=== PATIENT | female | born 2005 | race Caucasian/White ===

== ENCOUNTER 2023-08-12 13:45 | Emergency (ER) | payer BC, SELFPAY ==
[2023-08-12 14:00] VITALS: BP 114/74; PULSE 100; RESP 18; TEMP 37.1; O2SAT 98
--- NOTE | 2023-08-12 14:13 | ED.NAVMDI ---
HPI - Nausea/Vomiting/Diarrhea General Chief complaint: Nausea/Vomiting/Diarrhea Stated complaint: Vomiting/Diarrhea/Abdominal Pain History of Present Illness HPI Narrative: PATIENT PRESENTS WITH NAUSEA VOMITING WHICH HAS SINCE RESOLVED AND NOW SHE HAS HAD A FEW LIQUID STOOLS THE LAST 24 HOURS. NO ABDOMINAL PAIN NO FEVER. PATIENT STATES SHE HAS MISSED WORK AND IS HERE ASKING FOR A WORK NOTE. PATIENT REPORTS SHE TOLERATES LIQUIDS WELL NO FEVER NORMALLY HEALTHY INDIVIDUAL. Related Data Home Medications Medication Instructions Recorded Confirmed citalopram 20 mg tablet 30 mg PO DAILY 08/12/23 08/12/23 norethindrone acetate 1 mg-ethinyl See Rx Instructions .Route .COMPLEX 08/12/23 08/12/23 estradiol 20 mcg tablet (Junel) sumatriptan succinate 50 mg tablet See Rx Instructions .Route .COMPLEX 08/12/23 08/12/23 Allergies Allergy/AdvReac Type Severity Reaction Status Date / Time No Known Allergies Allergy Verified 08/12/23 14:04 Review of Systems Review of Systems: CONSTITUTIONAL: DENIES FEVER, CHILLS, OR SWEATS. EYES: DENIES VISUAL CHANGES, REDNESS, OR DISCHARGE. ENT: DENIES RHINORRHEA, CONGESTION, SORE THROAT, OR OTALGIA. CARDIOVASCULAR: DENIES CHEST PAIN, PALPITATIONS, OR EDEMA. RESPIRATORY: DENIES COUGH OR DYSPNEA. GASTROINTESTINAL: DENIES ABDOMINAL PAIN, NAUSEA, VOMITING, OR DIARRHEA. GENITOURINARY: DENIES DYSURIA OR HEMATURIA. SKIN: DENIES RASH OR ITCHING. MUSCULOSKELETAL: DENIES BACK PAIN, JOINT PAIN, OR MYALGIA. NEUROLOGIC: DENIES HEADACHE, NUMBNESS, OR WEAKNESS. PSYCHIATRIC: DENIES ANXIETY OR DEPRESSION. PMFSH Comments AT TIME OF SIGNATURE, AGREE WITH NURSING PAST MEDICAL, SURGICAL, SOCIAL AND FAMILY HISTORY. THERE IS NO RELEVANT FAMILY HISTORY PERTINENT TO THE PRESENTING COMPLAINT Exam Narrative: GENERAL: WELL-APPEARING, WELL-NOURISHED, AND IN NO ACUTE DISTRESS. HEAD: NORMOCEPHALIC, ATRAUMATIC. EYES: PERRLA AND EOMI. ENT: NARES CLEAR, NO RHINORRHEA OR EPISTAXIS. MUCOUS MEMBRANES MOIST. NECK: SUPPLE. CHEST: CLEAR TO AUSCULTATION. NO RESPIRATORY DISTRESS. HEART: REGULAR RATE AND RHYTHM. NO MURMUR HEARD. NORMAL PERIPHERAL PULSES. ABDOMEN: SOFT, NONTENDER, NONDISTENDED, NORMAL ACTIVE BOWEL SOUNDS. EXTREMITIES: NORMAL RANGE OF MOTION. NO EDEMA. SKIN: WARM, DRY, NO RASH. NEURO: NO FOCAL DEFICITS. ALERT AND ORIENTED X3. JONAH COMA SCALE EYE OPENING: SPONTANEOUS 4 JONAH COMA SCALE MOTOR: OBEYS COMMANDS 6 JONAH COMA SCALE VERBAL: ORIENTED 5 JONAH COMA SCALE TOTAL 15 Course Course Level of Care: Express Care Visit Vital Signs Vital signs: Vital Signs Temperature 37.1 C 08/12/23 14:00 Pulse Rate 100 08/12/23 14:00 Respiratory Rate 18 08/12/23 14:00 Blood Pressure 114/74 08/12/23 14:00 Pulse Oximetry 98 08/12/23 14:00 Temperature 37.1 C 08/12/23 14:00 Pulse Rate 100 08/12/23 14:00 Respiratory Rate 18 08/12/23 14:00 Blood Pressure 114/74 08/12/23 14:00 Pulse Oximetry 98 08/12/23 14:00 Discharge Plan Discharge Clinical Impression: Nausea & vomiting, Diarrhea Patient Disposition: Home, Self-Care Condition: Stable Additional Instructions: CLEAR LIQUIDS FOR THE NEXT 8-10 HOURS, THEN ADVANCE TO A BLAND DIET TOLERATED A BLAND DIET CAN CONSIST OF--BRAT DIET WHICH IS BANANAS, RICE, APPLESAUCE, AND TOAST AVOID FRIED, GREASY, FATTY, FRIED FOODS AVOID CAFFEINE, NICOTINE, AND ALCOHOL RETURN TO YOUR REGULAR DIET IN THE NEXT 3-4 DAYS MEDICATION DIRECTED FOR NAUSEA AND VOMITING -IF YOU HAVE ANY WORSENING OF SYMPTOMS OR ANY OTHER CONCERNS PLEASE GO TO THE ED IMMEDIATELY. Prescriptions: No Action sumatriptan succinate 50 mg tablet See Rx Instructions .ROUTE .COMPLEX Rx Instructions: as prescribed citalopram 20 mg tablet 30 mg PO DAILY norethindrone ac-eth estradiol [11/17 (21)] 1-20 mg-mcg tablet See Rx Instructions .ROUTE .COMPLEX Rx Instructions: as prescribed Follow-up/R
== END 2023-08-12 14:20 | disposition home or self-care (01) ==
PROVIDERS: Emergency Provider Nurse Practitioner Family
DX: R11.2 Nausea with vomiting, unspecified (principal); R19.7 Diarrhea, unspecified; F41.9 Anxiety disorder, unspecified
CPT/HCPCS: 99211; G0463

== ENCOUNTER 2023-09-12 10:09 | Emergency (ER) | payer BC, SELFPAY ==
[2023-09-12 10:14] VITALS: BP 125/72; PULSE 100; RESP 16; TEMP 36.4; O2SAT 98
--- NOTE | 2023-09-12 10:40 | ED.NAVMDI ---
HPI - Nausea/Vomiting/Diarrhea General Chief complaint: Nausea/Vomiting/Diarrhea Stated complaint: Vomiting/Diarrah Time Seen by Provider: 09/12/23 10:40 Source: patient, RN notes reviewed and old records reviewed Mode of arrival: ambulatory Limitations: no limitations History of Present Illness HPI Narrative: 18 year old female with complaints of feeling bad when she got up this morning but she went into work and around 8 o'clock she started having nausea and vomiting and also has had 2 episodes of diarrhea. Patient does admit to previous similar episode in July. Patient reports some achiness across her abdomen with no focal area of tenderness noted on palpation. Patient reports that she has not had a fever, chills or sweats or any body aches. She states that she did take some Imodium and some liquid IV solution. Patient states that they did eat [employer] for supper last night but significant other is not ill. Patient does report that brother has IBS. MD elicited complaint: nausea, vomiting and other (aching and cramping across abdomen) Pertinent past history: other (similar episode in July) Onset (ago): hour(s) (this morning) Description of vomiting: food contents Description of diarrhea: watery Associated nausea: Yes Associated abdominal pain: Yes Pain scale (0-10): 6 Treatment prior to arrival: immodium and other (liquid IV) Related Data Home Medications Medication Instructions Recorded Confirmed citalopram 20 mg tablet 30 mg PO DAILY 08/12/23 09/12/23 norethindrone acetate 1 mg-ethinyl 1 tablet PO DAILY 08/12/23 09/12/23 estradiol 20 mcg tablet (June) sumatriptan succinate 50 mg tablet 50 mg PO DAILY PRN Migraine 08/12/23 09/12/23 Headache Allergies Allergy/AdvReac Type Severity Reaction Status Date / Time No Known Allergies Allergy Verified 09/12/23 10:34 Review of Systems Review of Systems: CONSTITUTIONAL: Denies fever, chills, or sweats. EYES: Denies visual changes, redness, or discharge. ENT: Denies rhinorrhea, congestion, sore throat, or otalgia. CARDIOVASCULAR: Denies chest pain, palpitations, or edema. RESPIRATORY: Denies cough or dyspnea. GASTROINTESTINAL: across lower abdominal cramping and achiness, positive for nausea, vomiting, or diarrhea. GENITOURINARY: Denies dysuria or hematuria. SKIN: Denies rash or itching. MUSCULOSKELETAL: Denies back pain, joint pain, or myalgia. NEUROLOGIC: Denies headache, numbness, or weakness. PSYCHIATRIC: Reports history of anxiety or depression. All systems reviewed & are unremarkable except as noted in HPI and below PMFSH Past Medical History Medical History (Updated 09/13/23 @ 08:45 by Ness Shearer NP) Anxiety Hx of migraines Family History Family History (Updated 09/12/23 @ 10:58 by Ness Shearer NP) Sibling IBS (irritable bowel syndrome) Social History Social History (Updated 09/12/23 @ 10:59 by Ness Shearer NP) Smoking status: Current every day smoker Tobacco type: e-cigarettes/vaping Substance use type: does not use Gender identity (if verbalized by the patient): Female Comments At time of signature, agree with nursing past medical, surgical, social and family history. There is no relevant family history pertinent to the presenting complaint Exam Narrative: GENERAL: Well-appearing, well-nourished, and in no acute distress. HEAD: Normocephalic, atraumatic. EYES: PERRLA and EOMI. ENT: Nares clear, no rhinorrhea or epistaxis. Mucous membranes moist.RM's normal throat pink with no swelling NECK: Supple. no lymphadenopathy CHEST: Clear to auscultation. No respiratory distress. HEART: Regular rate and rhythm. No murmur heard. Normal peripheral pulses. ABDOMEN: Soft, nontender on palpation, no focal pain, nondistended, hypo- active bowel sounds. EXTREMITIES: Normal range of motion. No edema. SKIN: Warm, dry, no rash. NEURO: No focal deficits. Alert and oriented x3. Course Course Emergency Course: [place]
== END 2023-09-12 11:08 | disposition home or self-care (01) ==
PROVIDERS: Emergency Provider Registered Nurse
DX: K52.9 Noninfective gastroenteritis and colitis, unspecified (principal); F17.290 Nicotine dependence, other tobacco product, uncomplicated; Z79.899 Other long term (current) drug therapy
CPT/HCPCS: 87804; 99213; G0463

== ENCOUNTER 2023-09-13 12:35 | Emergency (ER) | payer BC, SELFPAY ==
[2023-09-13] VITALS (7 sets, daily range): BP systolic 122–128; BP diastolic 71–90; PULSE 96–120; RESP 15–23; TEMP 36.4–37; O2SAT 99–100
--- NOTE | ~2023-09-13 | CT_ITS ---
. EXAMINATION: CT abdomen pelvis w con DATE: 09/13/2023 15:37 INDICATION: Abdominal pain, nausea, vomiting, diarrhea for one month TECHNIQUE: Computed tomography (CT) of the abdomen and pelvis was performed with 100 CC Omnipaque 350 intravenous contrast. Automated exposure control and iterative reconstruction technique were employe d. Exam dose: 457.01 mGy-cm total exam DLP. COMPARISON: None. FINDINGS: Calcified lingular pulmonary granuloma. Minimal dependent bilateral lower lobe atelectasis. Normal heart size. No pericardial or pleural effusion. There is approximately 3.2 cm rounded enhancing lesion of the anterosuperior right hepatic lobe, most likely focal nodular hyperplasia in this 18-year-old female. There is otherwise diffuse hepatic steatosis with minimal pericholecystic sparing. No other hepatic s pace-occupying mass lesion is evident. The gallbladder appears unremarkable, without thickening of the wall or pericholecystic fluid or fat stranding. No bile duct or pancreatic duct dilatation. No pancreatic mass lesion or calcification. Normal splenic size. Normal morphology of the adrenal glands. No renal mass lesion or urinary tract calculus or hydroureteronephrosis is detected. The uterus, ovaries, adnexal areas and urinary bladder are unremarkable. Normal caliber of the abdominal aorta. No intraperitoneal or retroperitoneal or pelvic mass lesion or adenopathy or ascites. Normal appendix. No bowel obstruction or intraperitoneal free air. There are scattered air fluid levels of the small and large bowel without abnormal bowel dilatation o r bowel wall thickening or pneumatosis. Included skeletal structures are unremarkable. IMPRESSION: Scattered air fluid levels of small and large bowel, suggesting enterocolitis; no bowel obstruction or free air 3.2 cm enhancing right hepatic mass, likely focal nodular hyperplasia Hepatic steatosis Reviewed, dictated and finalized at [facility] Reviewed, dictated and finalized at [facility] IMPRESSION: Scattered air fluid levels of small and large bowel, suggesting en terocolitis; no bowel obstruction or free air 3.2 cm enhancing right hepatic mass, likely focal nodular hyperplasia Hepatic steatosis
[2023-09-13 13:07] LABS: Basophils Percent Auto 0.1 % (0.2-1.2); Eosinophils Absolute Auto 0.5 K/mm3 (0-0.3); Hematocrit 45.5 % (37.0-47.0); Hemoglobin 14.8 g/dL (12.0-15.0); Immature Granulocyte Absolute 0.06 K/mm3 (0.00-0.031); Immature Granulocyte Percent A 0.3 % (0-0.5); Lymphocytes Absolute Auto 1.59 K/mm3 (0.9-3.2); Lymphocytes Percent Auto 8.9 % (18.3-44.2); Mean Corpuscular HGB Conc 32.5 g/dl (32-36); Mean Corpuscular Hemoglobin 28.8 pg (26-34); Mean Corpuscular Volume 88.7 fl (80-100); Mean Platelet Volume 8.4 fl (7.4-10.4); Monocytes Absolute Auto 0.7 K/mm3 (0.1-0.6); Monocytes Percent Auto 3.8 % (2.6-8.5); Neutrophils Absolute Auto 14.9 K/mm3 (1.3-6.7); Neutrophils Percent Auto 83.9 % (45.5-73.1); Platelet Count Result 507 k/mm3 (150-375); Red Blood Count 5.13 M/mm3 (4.2-5.4); Red Cell Distribution Width 12.3 % (11.5-14.5); White Blood Count 17.8 K/mm3 (4.5-10.0)
[2023-09-13 13:19] LABS: Appearance Urine Cloudy (Clear); Bacteria Urine 2+ /hpf; Bilirubin Urine Negative (Negative); Blood Urine Negative (Negative); Color Urine Dark Yellow (Yellow); Glucose Urine UA Negative (Negative); Ketones Urine Trace mg/dL (Negative); Leukocyte Esterase Ur 1+ LEU/UL (Negative); Nitrate Urine Negative (Negative); Protein Urine Trace mg/dL (Negative); RBC Urine 0-2 /hpf (0-2); Specific Grav Ur 1.034 (1.001-1.035); Squamous Epithelial Cell Urine Few /hpf (Few)
[2023-09-13 13:20] LABS: Alanine Aminotransferase 22 U/L (6-35); Albumin Level 4.5 g/dL (3.5-5.1); Alkaline Phosphatase 79 U/L (38-126); Anion Gap 13 mmol/L (8-16); Aspartate Amino Transferase 20 U/L (14-36); Bilirubin,Total 0.5 mg/dL (0.2-1.3); Blood Urea Nitrogen 9 mg/dL (7-17); Calcium 9.3 mg/dL (8.4-10.2); Carbon Dioxide 19 mmol/L (22-30); Chloride 108 mmol/L (98-107); Estimated Glomerular Filt Rate > 60; Glucose 87 mg/dL (65-110); Lipase 99 U/L (23-300); Potassium 4.7 mmol/L (3.4-5.0); Sodium 140 mmol/L (137-145)
[2023-09-13 13:21] LABS: Add Urine Microscopic? YES
--- NOTE | 2023-09-13 15:15 | ED.NAVMDI ---
HPI - Nausea/Vomiting/Diarrhea General Chief complaint: Nausea/Vomiting/Diarrhea Stated complaint: N/V/D Time Seen by Provider: 09/13/23 14:57 History of Present Illness HPI Narrative: Patient is a 18-year-old female here with nausea, vomiting, abdominal pain, diarrhea. Patient states that about 1 month ago she began having nausea, vomiting, diarrhea. She was seen at an urgent care at that time and diagnosed with likely gastroenteritis. She has had continued intermittent symptoms since that time. She notes that over the last few days it seems to have gotten much worse again. She has had 5-7 bowel movements per day, usually liquid in nature, does have a nocturnal stools. She denies any blood in her vomit or stool. No recent antibiotic exposure. She notes she is having abdominal cramping over the last couple of days which usually occurs prior to having a bowel movement and relieved after bowel movements. She has some associated chills, no fever. She does have a family history of Crohn's disease in her brother, he was diagnosed as a teenager. She has never had a colonoscopy or endoscopy. No urinary symptoms. Related Data Home Medications Medication Instructions Recorded Confirmed citalopram 20 mg tablet 30 mg PO DAILY 08/12/23 09/12/23 norethindrone acetate 1 mg-ethinyl 1 tablet PO DAILY 08/12/23 09/12/23 estradiol 20 mcg tablet (Junel) sumatriptan succinate 50 mg tablet 50 mg PO DAILY PRN Migraine 08/12/23 09/12/23 Headache Allergies Allergy/AdvReac Type Severity Reaction Status Date / Time No Known Allergies Allergy Verified 09/13/23 12:54 Review of Systems Review of Systems: All systems reviewed & are unremarkable except as noted in HPI and below PMFSH Past Medical History Medical History (Updated 09/13/23 @ 16:22 by Daniela Butterfield MD) Anxiety Hx of migraines Family History Family History (Updated 09/12/23 @ 10:58 by Ness Shearer NP) Sibling IBS (irritable bowel syndrome) Social History Social History (Updated 09/12/23 @ 10:59 by Ness Shearer NP) Smoking status: Current every day smoker Tobacco type: e-cigarettes/vaping Substance use type: does not use Gender identity (if verbalized by the patient): Female Exam Narrative: GENERAL: Well-appearing, well-nourished, and in no acute distress. HEAD: Normocephalic, atraumatic. EYES: PERRLA and EOMI. ENT: Nares clear. Mucous membranes moist. NECK: Supple. CHEST: Clear to auscultation. No respiratory distress. HEART: Tachycardic. Normal peripheral pulses. ABDOMEN: Soft, diffuse abdominal tenderness, no rebound or guarding. EXTREMITIES: Normal range of motion. No edema. SKIN: Warm, dry, no rash. NEURO: No focal deficits. Alert and oriented x3. PSYCH: Normal mood and affect. Course Course Emergency Course: Chart review performed. Patient is here with N/V/D for 1 month. She was seen at an urgent care on 09/12/23, note reviewed, suspected she hasd traveler's diarrhea, food poisoning or gastroenteritis. Triage vitals show tachycardia, tachypnea otherwise normal. Patient seen evaluated, she is here with ongoing abdominal pain, nausea, vomiting, diarrhea that has occurred for the last 1 month. Concerns for intra-abdominal infectious process, he inflammatory bowel disease. She has never had a colonoscopy in the past. Will do workup here with lab work, CT abdomen pelvis, IV fluids, antiemetics. Lab work reviewed, white blood cell count of 17.8, electrolytes within normal limits, UA shows 1+ leukocyte esterase, 11-20 white blood cells, few 2+ bacteria. Awaiting CT. CT shows enteritis. Will start on augmentin which should cover possible abdominal infection as well as a UTI. Will also prescribe Zofran. Patient will be referred to GI as well as Dr. Vergara. The results of pertinent diagnostic studies and exam findings were discussed. The patient?s provisional diagnosis and plan of care were discussed with the patient and pres
[2023-09-13] MEDS: ONDANSETRON INJ 4 MG/2 ML VIAL IV PUSH (15:39)
[2023-09-13] MEDS: SODIUM CHLORIDE 0.9% IV 1,000 ML 999 ML IV CONT (15:39)
[2023-09-13] MEDS: PANTOPRAZOLE SODIUM IV 40 MG VIAL IV PUSH (15:40)
[2023-09-13] MEDS: AMOXICILLIN/CLAVULANATE K 875-125 MG TAB 1 TABLET PO (16:38)
== END 2023-09-13 16:46 | disposition home or self-care (01) ==
PROVIDERS: Emergency Provider Student in an Organized Health Care Education/Training Program
DX: K52.9 Noninfective gastroenteritis and colitis, unspecified (principal); N39.0 Urinary tract infection, site not specified; E86.0 Dehydration; F41.9 Anxiety disorder, unspecified; F17.290 Nicotine dependence, other tobacco product, uncomplicated; K76.0 Fatty (change of) liver, not elsewhere classified; K76.9 Liver disease, unspecified
CPT/HCPCS: 36415; 74177; 80053; 81001; 81025; 83690; 85025; 87086; 96361; 96374; 96375; 99284; A9270; C9113; J2405; J7030; Q9967

== ENCOUNTER 2023-11-29 10:12 | Emergency (ER) | payer BC, SELFPAY ==
[2023-11-29 10:20] VITALS: BP 138/65; PULSE 133; RESP 16; TEMP 36.8; O2SAT 99
--- NOTE | 2023-11-29 11:09 | ED.URI ---
HPI - URI/Sore Throat General Chief Complaint: Upper Respiratory Infection Stated Complaint: Sore Throat/Cough/Congestion Source: patient and RN notes reviewed Mode of arrival: ambulatory Limitations: no limitations History of Present Illness HPI Narrative: 18 y/o female presented for c/o sore throat, headache, nasal congestion, and body aches. Onset yesterday. 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 tested neg for covid at home. Took Benadryl yesterday. MD elicited complaint: cough Related Data Home Medications Medication Instructions Recorded Confirmed citalopram 20 mg tablet 30 mg PO DAILY 08/12/23 11/29/23 norethindrone acetate 1 mg-ethinyl 1 tablet PO DAILY 08/12/23 11/29/23 estradiol 20 mcg tablet (June) sumatriptan succinate 50 mg tablet 50 mg PO DAILY PRN Migraine 08/12/23 11/29/23 Headache Allergies Allergy/AdvReac Type Severity Reaction Status Date / Time No Known Allergies Allergy Verified 09/27/23 10:34 Review of Systems Review of Systems: CONSTITUTIONAL: Endorses malaise, denies chills, sweats, fever EYES: Denies visual changes, redness, or discharge ENT: Reports rhinorrhea, congestion, sore throat CARDIOVASCULAR: Denies chest pain, palpitations, edema RESPIRATORY: Reports cough, post nasal drainage. Denies dyspnea GASTROINTESTINAL: Denies abdominal pain, nausea, vomiting, diarrhea MUSCULOSKELETAL: Endorses myalgia NEUROLOGIC: endorses headache PMFSH Past Medical History Medical History (Updated 11/29/23 @ 11:16 by Carie Pennington APRN) Anxiety History of Clostridioides difficile colitis Hx of migraines Family History Family History Sibling IBS (irritable bowel syndrome) Social History Social History Smoking status: Current every day smoker Tobacco type: e-cigarettes/vaping Substance use type: does not use Gender identity (if verbalized by the patient): Female Exam Narrative: GENERAL: mildly Ill-appearing, nontoxic no acute distress. EYES: PERRLA, conjunctivae clear ENT: Mucous membranes moist. TM pearly bernal with dull light reflex bilaterally; no tragal tenderness. Oropharynx mildly erythematous without lesions or exudate, no drooling, no hoarseness, no trismus, uvula midline. CHEST: Clear to auscultation, breath sounds equal. HEART: Regular rate and rhythm. No murmur heard. SKIN: Warm, dry, no rash. NEURO: Alert and oriented x3. PSYCH: Normal mood and affect Course Course Emergency Course: Patient is aware of diagnosis, understands and agrees to treatment plan. Anticipatory guidance given. Patient agrees to follow-up as directed and is aware of reasons to seek care at the emergency department. Portions of this record may have been created with voice recognition software Level of Care: Express Care Visit Vital Signs Vital signs: Vital Signs Temperature 98.2 F 11/29/23 10:20 Pulse Rate 133 H 11/29/23 10:20 Respiratory Rate 16 11/29/23 10:20 Blood Pressure 138/65 11/29/23 10:20 Pulse Oximetry 99 11/29/23 10:20 Oxygen Delivery Room Air 11/29/23 10:20 Temperature 98.2 F 11/29/23 10:20 Pulse Rate 133 H 11/29/23 10:20 Respiratory Rate 16 11/29/23 10:20 Blood Pressure 138/65 11/29/23 10:20 Pulse Oximetry 99 11/29/23 10:20 Oxygen Delivery Room Air 11/29/23 10:20 reviewed MDM - URI/Sore Throat MDM Narrative Medical decision making narrative: strep negative, flu positive. Results reviewed with patient. Discussed physical exam findings. Advised supportive measures and signs/symptoms to go to the ER. Pt is appropriate for outpt treatment and f/u. Differential Diagnosis Differential diagnosis: Likely upper respiratory infection, sinusitis, viral infection, influenza and pharyngitis Lab Data Labs: Influenza A Screen Positive
== END 2023-11-29 11:17 | disposition home or self-care (01) ==
PROVIDERS: Emergency Provider Nurse Practitioner Family; PCP Emergency Medicine
DX: J10.1 Influenza due to other identified influenza virus with other respiratory manifestations (principal); F17.290 Nicotine dependence, other tobacco product, uncomplicated; F41.9 Anxiety disorder, unspecified
CPT/HCPCS: 87081; 87804; 87880; 99213; G0463

== ENCOUNTER 2023-12-26 16:48 | Emergency (ER) | payer BC, SELFPAY ==
[2023-12-26 16:58] VITALS: BP 125/75; PULSE 91; RESP 16; TEMP 36.4; O2SAT 100
--- NOTE | 2023-12-26 18:13 | ED.NAVMDI ---
HPI - Nausea/Vomiting/Diarrhea General Chief complaint: Nausea/Vomiting/Diarrhea Stated complaint: nausea History of Present Illness HPI Narrative: Pt is a 18 y/o female, presents to with NVD that began last HS, lasting through the night and then resolved. She feels it may have been something she ate and she feels so much better but requires a note for work to return tomorrow. she denies any other complaints at present, she has no fevers, abdominal pain, hematemesis, hematochezia or melena, she has no urinary symptoms or rash. She is not Related Data Home Medications Medication Instructions Recorded Confirmed citalopram 20 mg tablet 30 mg PO DAILY 08/12/23 11/29/23 norethindrone acetate 1 mg-ethinyl 1 tablet PO DAILY 08/12/23 11/29/23 estradiol 20 mcg tablet (Junel) sumatriptan succinate 50 mg tablet 50 mg PO DAILY PRN Migraine 08/12/23 11/29/23 Headache Allergies Allergy/AdvReac Type Severity Reaction Status Date / Time No Known Allergies Allergy Verified 09/27/23 10:34 Review of Systems Gastrointestinal: Comments: refer to [facility] Past Medical History Medical History (Updated 12/26/23 @ 18:19 by ROBERT Carlson) Anxiety History of Clostridioides difficile colitis Hx of migraines Family History Family History Sibling IBS (irritable bowel syndrome) Social History Social History Smoking status: Current every day smoker Tobacco type: e-cigarettes/vaping Substance use type: does not use Gender identity (if verbalized by the patient): Female Exam Const: General: cooperative, healthy appearing and comfortable Nutritional Appearance: average body habitus Orientation/consciousness: oriented to person, oriented to place, oriented to time and patient oriented x3 Limitations: no limitations HENMT: Head: normal to inspection Mouth: Yes Normal oral and palatal mucosa present Throat: posterior oropharynx normal, tonsils normal and uvula midline Eyes: General: appearance normal, both eyes and all related structures Neck: Neck: normal visual inspection, full ROM, no lymphadenopathy and no meningeal signs Resp: Effort & Inspection: normal respiratory effort Auscultation: clear to auscultation bilaterally Cardio: Palpation: normal PMI Rate: regular rate Rhythm: regular rhythm Heart sounds: S1 normal heart sound present and S2 normal heart sound present GI: Inspection: normal to inspection GI Palp: No abdominal tenderness, No Abdominal aortic bruit present, Yes Soft to palpation, No Firmness to palpation present (GI), No Tenderness to palpation present (GI), No Guarding due to palpation present (GI), No Rigid due to palpation, No No hepatosplenomegaly present, No Hepatosplenomegaly present, No Hepatomegaly present, No Splenomegaly present, No Hernia present, No Palpable mass present, No Pulsatile mass present, No Aortic enlargement present, No Ascites present, No Carnett's sign positive, No Rebound tenderness present, No Bladder palpation abnormal and No Other GI palpation findings present Skin: General skin exam: normal color and no rashes or lesions noted Lesions: no lesions Rashes: no rashes Neuro: General: oriented to person, oriented to place, oriented to time, patient oriented x3, gait normal, tone normal and CN's II-XI intact bilaterally Course Course Emergency Course: Pt feels improved and has no acute complaints. suspect viral gastroenteritis. Plan to discharge home with supportive care. pt is requesting to work tomorrow. Level of Care: Express Care Visit ([id number]) Vital Signs Vital signs: Vital Signs Temperature 36.4 C L 12/26/23 16:58 Pulse Rate 91 12/26/23 16:58 Respiratory Rate 16 12/26/23 16:58 Blood Pressure 125/75 12/26/23 16:58 Pulse Oximetry 100 12/26/23 16:58 Oxygen Delivery Room Air 12/26/23 16:58 Temperature 36.4
== END 2023-12-26 18:22 | disposition home or self-care (01) ==
PROVIDERS: Emergency Provider Nurse Practitioner Family; PCP Emergency Medicine
DX: K52.9 Noninfective gastroenteritis and colitis, unspecified (principal); F17.290 Nicotine dependence, other tobacco product, uncomplicated; F41.9 Anxiety disorder, unspecified
CPT/HCPCS: 99211; G0463

== ENCOUNTER 2024-01-15 16:26 | Emergency (ER) | payer BC, SELFPAY ==
[2024-01-15 16:52] VITALS: BP 123/83; PULSE 121; RESP 20; TEMP 36.7; O2SAT 100
--- NOTE | 2024-01-15 17:42 | ED.EAR ---
HPI - Ear Problem General Chief complaint: Ear Stated complaint: left ear pain Time Seen by Provider: 01/15/24 17:40 Source: patient Mode of arrival: ambulatory Limitations: no limitations History of Present Illness HPI Narrative: 18 y/o female presented for c/o left ear pain today. Reports 2-3 days of sinus congestion. Took Advil. reports slightly muffled hearing. Denies tinnitus, dizziness, nausea vomiting, diarrhea, fevers or chills. MD Complaint: ear pain Related Data Home Medications Medication Instructions Recorded Confirmed citalopram 20 mg tablet 30 mg PO DAILY 08/12/23 11/29/23 norethindrone acetate 1 mg-ethinyl 1 tablet PO DAILY 08/12/23 11/29/23 estradiol 20 mcg tablet (June) sumatriptan succinate 50 mg tablet 50 mg PO DAILY PRN Migraine 08/12/23 11/29/23 Headache Allergies Allergy/AdvReac Type Severity Reaction Status Date / Time No Known Allergies Allergy Verified 09/27/23 10:34 Review of Systems Review of Systems: CONSTITUTIONAL: Denies malaise, chills, or fever. EYES: Denies visual changes, redness, or discharge. ENT: Reports rhinorrhea, congestion, ear pain denies sinus pain, sore throat. CARDIOVASCULAR: Denies chest pain, palpitations, or edema. RESPIRATORY: Denies cough or dyspnea. GASTROINTESTINAL: Denies abdominal pain, nausea, vomiting, diarrhea SKIN: Denies rash or itching. MUSCULOSKELETAL: Denies myalgia. NEUROLOGIC: Denies headache. All systems reviewed & are unremarkable except as noted in HPI and below PMFSH Past Medical History Medical History Anxiety History of Clostridioides difficile colitis Hx of migraines Family History Family History Sibling IBS (irritable bowel syndrome) Social History Social History Smoking status: Current every day smoker Tobacco type: e-cigarettes/vaping Substance use type: does not use Gender identity (if verbalized by the patient): Female Comments At time of signature, agree with nursing past medical, surgical, social and family history. There is no relevant family history pertinent to the presenting complaint Exam Narrative: GENERAL: Well-appearing EYES: PERRLA, conjunctivae clear ENT: Mucous membranes moist. Right TM pearly bernal with dull light reflex; left TM erythematous, bulging and intact; canal not erythematous, no drainage no tragal tenderness. Oropharynx not erythematous without lesions. Tonsils not enlarged and without exudate, no drooling, no hoarseness, no trismus, uvula midline. NECK: Supple. No lymphadenopathy CHEST: Clear to auscultation, breath sounds equal. HEART: Regular rate and rhythm. No murmur heard. SKIN: Warm, dry, no rash. NEURO: Alert and oriented x3. PSYCH: Normal mood and affect Course Course Emergency Course: Patient is aware of diagnosis, understands and agrees to treatment plan. Anticipatory guidance given. Patient agrees to follow-up as directed and is aware of reasons to seek care at the emergency department. Portions of this record may have been created with voice recognition software Level of Care: Express Care Visit Vital Signs Vital signs: Vital Signs Temperature 98.1 F 01/15/24 16:52 Pulse Rate 121 H 01/15/24 16:52 Respiratory Rate 20 01/15/24 16:52 Blood Pressure 123/83 01/15/24 16:52 Pulse Oximetry 100 01/15/24 16:52 Oxygen Delivery Room Air 01/15/24 16:52 Temperature 98.1 F 01/15/24 16:52 Pulse Rate 121 H 01/15/24 16:52 Respiratory Rate 20 01/15/24 16:52 Blood Pressure 123/83 01/15/24 16:52 Pulse Oximetry 100 01/15/24 16:52 Oxygen Delivery Room Air 01/15/24 16:52 Reviewed Medical Decision Making MDM Narrative Medical decision making narrative: discussed physical exam findings consistent with left AOM. Reviewed Rx. Advised supportive measures and sign
== END 2024-01-15 17:52 | disposition home or self-care (01) ==
PROVIDERS: Emergency Provider Nurse Practitioner Family; PCP Emergency Medicine
DX: H66.92 Otitis media, unspecified, left ear (principal); F41.9 Anxiety disorder, unspecified; F17.290 Nicotine dependence, other tobacco product, uncomplicated; Z86.19 Personal history of other infectious and parasitic diseases
CPT/HCPCS: 99213; G0463

== ENCOUNTER 2024-03-18 11:43 | Emergency (ER) | payer BC, SELFPAY ==
[2024-03-18 11:48] VITALS: BP 129/79; PULSE 98; RESP 16; TEMP 36.4; O2SAT 100
--- NOTE | 2024-03-18 12:46 | ED.GENADULT ---
HPI - General Adult General Chief complaint: Urogenital-Female Stated complaint: Urinary Problem Source: patient Mode of arrival: ambulatory Limitations: no limitations History of Present Illness HPI narrative: Patient presents for evaluation of dysuria for the last 2 days. She indicates she was camping and was holding her bladder. She believes she has urinary tract infection. She reports yellow vaginal discharge that started the same day of symptom onset for the dysuria. She does not appreciate any at this time. She denies any fever, chills, nausea, vomiting, abdominal pain, low back pain, urinary frequency, urgency, and hesitancy. She is sexually active with 1 male partner, symptoms using condoms. She believes he is asymptomatic. She is adherent to oral contraception. Related Data Home Medications Medication Instructions Recorded Confirmed citalopram 20 mg tablet 30 mg PO DAILY 08/12/23 11/29/23 norethindrone acetate 1 mg-ethinyl 1 tablet PO DAILY 08/12/23 11/29/23 estradiol 20 mcg tablet (Junel) Allergies Allergy/AdvReac Type Severity Reaction Status Date / Time No Known Allergies Allergy Verified 09/27/23 10:34 Review of Systems Review of Systems: CONSTITUTIONAL: Denies fever, chills, or sweats. EYES: Denies visual changes, redness, or discharge. ENT: Denies rhinorrhea, congestion, sore throat, or otalgia. CARDIOVASCULAR: Denies chest pain, palpitations, or edema. RESPIRATORY: Denies cough or dyspnea. GASTROINTESTINAL: Denies abdominal pain, nausea, vomiting, or diarrhea. GENITOURINARY: Reports dysuria and yellow vaginal discharge SKIN: Denies rash or itching. MUSCULOSKELETAL: Denies back pain, joint pain, or myalgia. NEUROLOGIC: Denies headache, numbness, dizziness, or weakness. PSYCHIATRIC: Denies anxiety or depression. [facility] Past Medical History Medical History (Updated 03/18/24 @ 12:53 by ROBERT Hernandez, MARY) Anxiety History of Clostridioides difficile colitis Hx of migraines Surgical History Surgical History (Updated 03/18/24 @ 12:49 by ROBERT Hernandez, MARY) No pertinent past surgical history Family History Family History Sibling IBS (irritable bowel syndrome) Social History Social History Smoking status: Current every day smoker Tobacco type: e-cigarettes/vaping Substance use type: does not use Gender identity (if verbalized by the patient): Female Exam Narrative: GENERAL: Well-appearing, well-nourished, and in no acute distress. HEAD: Normocephalic, atraumatic. EYES: PERRLA and EOMI. ENT: Nares clear, no rhinorrhea or epistaxis. Mucous membranes moist. Oropharynx without tonsillar hypertrophy exudate or other lesions. Bilateral TMs pearly bernal nonbulging NECK: Supple. No adenopathy or masses. No carotid bruits or JVD CHEST: Clear to auscultation. No respiratory distress. No wheezes rales or rhonchi HEART: Regular rate and rhythm. No murmur heard. Normal peripheral pulses. ABDOMEN: Soft, nontender, nondistended, normal active bowel sounds. EXTREMITIES: Normal range of motion. No edema. SKIN: Warm, dry, no rash. NEURO: No focal deficits. Alert and oriented x3. PSYCH: Normal mood and affect. Course Course Emergency Course: This is a 18-year-old female who presented for evaluation of dysuria and vaginal discharge. She does have trace leukocytes in her urine today a opted to proceed with empiric treatment for gonorrhea chlamydia, Trichomonas, and BV. She declined pelvic exam. I think this is reasonable as she has no pelvic pain to suggest PID. Advised to remain sexually abstinent until test results accessible. Increase hydration. Follow up with PCP and go to the ER for worsening symptoms. Pt in agreement with plan of care. Level of Care: Express Care Visit Vital Signs Vital signs: Vital Signs Temperature 36.4 C
[2024-03-18] MEDS: cefTRIAXone 500 MG, LIDOCAINE HCL 1% LOCAL INJ 1 ML IM (13:00)
[2024-03-18 20:11] LABS: Trichomonas Vag PCR NOT DETECTED (NOT DETECTE)
[2024-03-18 20:37] LABS: Chlamydia trachomatis NOT DETECTED (NOT DETECTE); Neisseria gonorrhoeae PCR NOT DETECTED (NOT DETECTE)
== END 2024-03-18 13:21 | disposition home or self-care (01) ==
PROVIDERS: Emergency Provider Nurse Practitioner
DX: N89.8 Other specified noninflammatory disorders of vagina (principal); R30.0 Dysuria; F17.290 Nicotine dependence, other tobacco product, uncomplicated; F41.9 Anxiety disorder, unspecified
CPT/HCPCS: 81003; 81025; 87086; 87088; 87491; 87591; 87661; 96372; 99214; G0463; J0696